=== PATIENT | female | born 1960 | race Caucasian/White ===

== ENCOUNTER 2024-10-20 18:48 | Inpatient (IN) ==
[2024-10-20] MEDS ORDERED: IOPAMIDOL 100 ML BOTTLE IV ONE (18:49)
[2024-10-20] MEDS: LORazepam 2 MG/ML VIAL IV ONE (19:24)
[2024-10-20] MEDS: 0.9 % SODIUM CHLORIDE 1,000 ML IV ONE (19:24)
[2024-10-20 19:49] LABS: Basophils # (Auto) 0.03 K/mcL (0.00-0.30); Basophils % (Auto) 0.3 % (0.0-2.0); Eosinophils # (Auto) 0.08 K/mcL (0.00-0.70); Eosinophils % (Auto) 0.9 % (0.0-7.0); Hematocrit 43.6 % (34.1-44.9); Hemoglobin 14.4 g/dL (11.2-15.7); Lymphocytes # (Auto) 2.78 K/mcL (1.50-4.80); Lymphocytes % (Auto) 29.6 % (15.5-49.0); Mean Cell Volume 98.2 fL (80.0-100.0); Mean Platelet Volume 9.8 fL (8.8-12.5); Monocytes # (Auto) 0.85 K/mcL (0.10-0.90); Monocytes % (Auto) 9.1 % (1.0-12.0); Neutrophils % (Auto) 59.2 % (38.0-78.0); Platelet Count 387 K/mcL (140-440); RBC 4.44 M/mcL (3.59-5.38); Red Cell Distribution Width 13.9 % (11.5-14.5); WBC 9.4 K/mcL (4.5-11.0)
[2024-10-20 20:19] LABS: ALT/SGPT 485 U/L (<40); AST/SGOT 500 U/L (<32); Albumin 3.8 gm/dL (3.2-5.2); Albumin/Globulin Ratio 1.5 (1.0-2.3); Alkaline Phosphatase 143 U/L (39-117); Bilirubin,Total 1.3 mg/dL (0.1-1.0); Blood Urea Nitrogen 21 mg/dL (8-23); Calcium 8.9 mg/dL (8.6-10.4); Carbon Dioxide 16 mmol/L (22-30); Chloride 103 mmol/L (96-108); Globulin 2.6 gm/dL (2.2-3.7); Glomerular Filtration Rate 67; Glucose 147 mg/dL (70-105); Potassium 4.3 mmol/L (3.3-5.1); Sodium 138 mmol/L (133-145)
[2024-10-20] MEDS: ONDANSETRON 4 MG/2 ML VIAL IV ONE (20:46)
[2024-10-20] MEDS: morphine 4 MG/ML VIAL IV PRN (20:46)
[2024-10-20] MEDS: PROCHLORPERAZINE 10 MG/2 ML VIAL IV ONE (21:56)
[2024-10-20] MEDS: HYDROmorphone 1 MG/ML SYRINGE IV ONE (21:56)
[2024-10-20] MEDS: 0.9 % SODIUM CHLORIDE 1,000 ML IV SCH ×2 (21:57→22:16)
[2024-10-20] MEDS: FUROSEMIDE 40 MG/4 ML VIAL IV ONE (22:23)
[2024-10-20] MEDS: ASPIRIN 325 MG ENTERIC COATED TABLET PO ONE (22:57)
[2024-10-20] MEDS: ASPIRIN 81 MG TAB.CHEW CHEWED ONE (23:05)
[2024-10-21] MEDS ORDERED: NALOXONE HCL 0.4 MG/ML VIAL IV PRN (01:15)
[2024-10-21] MEDS ORDERED: POLYETHYLENE GLYCOL 3350 17 GM PACKET PO PRN (01:15)
[2024-10-21] MEDS ORDERED: SENNOSIDES 1 TABLET PO PRN (01:15)
[2024-10-21 01:59] LABS: Free T4 (Free Thyroxine) 1.67 ng/dL (0.93-1.70)
[2024-10-21 02:00] LABS: Phosphorous 2.9 mg/dL (2.5-4.5); Thyroid Stimulating Hormone 2.66 uIU/mL (0.27-5.01)
[2024-10-21] MEDS: 0.9 % SODIUM CHLORIDE 10 ML SYRINGE IV SCH (06:04)
[2024-10-21] MEDS: FUROSEMIDE 40 MG/4 ML VIAL IV SCH (06:04)
[2024-10-21] MEDS: FUROSEMIDE 40 MG/4 ML VIAL IV ONE (06:05)
[2024-10-21 07:04] LABS: ALT/SGPT 565 U/L (<40); AST/SGOT 550 U/L (<32); Albumin 3.4 gm/dL (3.2-5.2); Albumin/Globulin Ratio 1.6 (1.0-2.3); Alkaline Phosphatase 124 U/L (39-117); Bilirubin,Direct 0.4 mg/dL (<0.3); Bilirubin,Total 0.8 mg/dL (0.1-1.0); Blood Urea Nitrogen 19 mg/dL (8-23); Calcium 8.4 mg/dL (8.6-10.4); Carbon Dioxide 21 mmol/L (22-30); Chloride 106 mmol/L (96-108); Globulin 2.1 gm/dL (2.2-3.7); Glomerular Filtration Rate 67; Glucose 95 mg/dL (70-105); Lactate Dehydrogenase 517 U/L (135-225); Phosphorous 3.4 mg/dL (2.5-4.5); Potassium 3.7 mmol/L (3.3-5.1); Sodium 141 mmol/L (133-145); Triglycerides 106 mg/dL (<150); Uric Acid 8.2 mg/dL (2.5-8.0)
[2024-10-21 07:34] LABS: Basophils # (Auto) 0.03 K/mcL (0.00-0.30); Basophils % (Auto) 0.4 % (0.0-2.0); Eosinophils # (Auto) 0.06 K/mcL (0.00-0.70); Eosinophils % (Auto) 0.9 % (0.0-7.0); Hematocrit 50.1 % (34.1-44.9); Hemoglobin 15.8 g/dL (11.2-15.7); Lymphocytes # (Auto) 0.63 K/mcL (1.50-4.80); Mean Cell Volume 98.4 fL (80.0-100.0); Mean Corpuscular HGB Conc 31.5 g/dL (31.0-36.0); Mean Platelet Volume 10.6 fL (8.8-12.5); Monocytes # (Auto) 0.96 K/mcL (0.10-0.90); Monocytes % (Auto) 13.7 % (1.0-12.0); Neutrophils % (Auto) 75.9 % (38.0-78.0); Platelet Count 179 K/mcL (140-440); RBC 5.09 M/mcL (3.59-5.38); Red Cell Distribution Width 14.6 % (11.5-14.5)
[2024-10-21 07:52] LABS: Hepatitis A Antibody IgM Non-Reactive (Non-Reactive); Hepatitis B Surface Antigen Negative (Negative); Hepatitis C Virus Antibody Non-Reactive (Non-Reactive)
[2024-10-21] MEDS: POTASSIUM CHLORIDE 20 MEQ TABLET PO ONE (08:08)
[2024-10-21] MEDS: MAGNESIUM SULFATE 2 GM/50 ML BAG IV ONE (08:08)
[2024-10-21] MEDS: HEPARIN 5,000 UNIT/ML VIAL SQ SCH (09:33)
[2024-10-21] MEDS: DOXYCYCLINE HYCLATE 100 MG TABLET.ORL PO SCH (09:33)
[2024-10-21] MEDS: morphine 4 MG/ML VIAL IV PRN (16:22)
[2024-10-21] MEDS: ACETAMINOPHEN 325 MG TABLET PO PRN (16:54)
[2024-10-22 06:46] LABS: Basophils # (Auto) 0.03 K/mcL (0.00-0.30); Basophils % (Auto) 0.4 % (0.0-2.0); Eosinophils # (Auto) 0.14 K/mcL (0.00-0.70); Eosinophils % (Auto) 2.1 % (0.0-7.0); Hematocrit 41.5 % (34.1-44.9); Hemoglobin 13.9 g/dL (11.2-15.7); Lymphocytes # (Auto) 1.97 K/mcL (1.50-4.80); Lymphocytes % (Auto) 29.5 % (15.5-49.0); Mean Cell Volume 98.6 fL (80.0-100.0); Mean Corpuscular HGB Conc 33.5 g/dL (31.0-36.0); Mean Platelet Volume 9.6 fL (8.8-12.5); Monocytes # (Auto) 0.58 K/mcL (0.10-0.90); Monocytes % (Auto) 8.7 % (1.0-12.0); Neutrophils % (Auto) 58.7 % (38.0-78.0); Platelet Count 297 K/mcL (140-440); RBC 4.21 M/mcL (3.59-5.38); Red Cell Distribution Width 13.6 % (11.5-14.5); WBC 6.7 K/mcL (4.5-11.0)
[2024-10-22 07:00] LABS: ALT/SGPT 467 U/L (<40); AST/SGOT 301 U/L (<32); Albumin 3.3 gm/dL (3.2-5.2); Albumin/Globulin Ratio 1.4 (1.0-2.3); Alkaline Phosphatase 118 U/L (39-117); Bilirubin,Direct 0.4 mg/dL (<0.3); Bilirubin,Total 0.7 mg/dL (0.1-1.0); Blood Urea Nitrogen 24 mg/dL (8-23); Carbon Dioxide 27 mmol/L (22-30); Chloride 99 mmol/L (96-108); Globulin 2.3 gm/dL (2.2-3.7); Glomerular Filtration Rate 52; Glucose 99 mg/dL (70-105); Lactate Dehydrogenase 328 U/L (135-225); Phosphorous 4.5 mg/dL (2.5-4.5); Potassium 4.1 mmol/L (3.3-5.1); Sodium 140 mmol/L (133-145); Triglycerides 91 mg/dL (<150); Uric Acid 9.6 mg/dL (2.5-8.0)
[2024-10-22] MEDS: ONDANSETRON 4 MG/2 ML VIAL IV PRN (15:02)
[2024-10-22] MEDS: SPIRONOLACTONE 25 MG TABLET PO SCH (15:02)
[2024-10-22] MEDS: FUROSEMIDE 40 MG/4 ML VIAL IV ONE ×2 (22:45→22:48)
[2024-10-22] MEDS: CARVEDILOL 6.25 MG TABLET ONE (22:45)
[2024-10-22] MEDS: CARVEDILOL 6.25 MG TABLET PO ONE (22:48)
[2024-10-23 06:36] LABS: Basophils # (Auto) 0.01 K/mcL (0.00-0.30); Basophils % (Auto) 0.1 % (0.0-2.0); Eosinophils # (Auto) 0.15 K/mcL (0.00-0.70); Eosinophils % (Auto) 1.8 % (0.0-7.0); Hemoglobin 14.8 g/dL (11.2-15.7); Lymphocytes # (Auto) 2.06 K/mcL (1.50-4.80); Lymphocytes % (Auto) 25.2 % (15.5-49.0); Mean Cell Volume 96.3 fL (80.0-100.0); Mean Corpuscular HGB Conc 33.6 g/dL (31.0-36.0); Mean Platelet Volume 9.5 fL (8.8-12.5); Monocytes # (Auto) 0.85 K/mcL (0.10-0.90); Monocytes % (Auto) 10.4 % (1.0-12.0); Neutrophils % (Auto) 62.1 % (38.0-78.0); Platelet Count 318 K/mcL (140-440); RBC 4.57 M/mcL (3.59-5.38); Red Cell Distribution Width 13.4 % (11.5-14.5); WBC 8.2 K/mcL (4.5-11.0)
[2024-10-23 07:19] LABS: ALT/SGPT 412 U/L (<40); AST/SGOT 199 U/L (<32); Albumin 3.5 gm/dL (3.2-5.2); Albumin/Globulin Ratio 1.3 (1.0-2.3); Alkaline Phosphatase 118 U/L (39-117); Bilirubin,Direct 0.3 mg/dL (<0.3); Bilirubin,Total 0.5 mg/dL (0.1-1.0); Blood Urea Nitrogen 31 mg/dL (8-23); Calcium 9.3 mg/dL (8.6-10.4); Carbon Dioxide 28 mmol/L (22-30); Chloride 94 mmol/L (96-108); Globulin 2.7 gm/dL (2.2-3.7); Glomerular Filtration Rate 67; Glucose 106 mg/dL (70-105); Lactate Dehydrogenase 287 U/L (135-225); Phosphorous 5.2 mg/dL (2.5-4.5); Sodium 138 mmol/L (133-145); Triglycerides 154 mg/dL (<150)
[2024-10-23] MEDS ORDERED: CARVEDILOL 6.25 MG TABLET PO SCH (08:00)
[2024-10-23] MEDS: FUROSEMIDE 40 MG/4 ML VIAL IV SCH (08:01)
[2024-10-23] MEDS: CARVEDILOL 6.25 MG TABLET PO SCH (08:01)
[2024-10-23] MEDS: METHOCARBAMOL 500 MG TABLET PO PRN (08:01)
[2024-10-23] MEDS: LOSARTAN 25 MG TABLET PO SCH ×2 (10:15→20:46)
[2024-10-23] MEDS: 0.9 % SODIUM CHLORIDE 500 ML IV ONE (10:41)
[2024-10-23] MEDS: 0.9 % SODIUM CHLORIDE 1,000 ML IV ONE (11:25)
[2024-10-24 06:45] LABS: Basophils # (Auto) 0.03 K/mcL (0.00-0.30); Basophils % (Auto) 0.5 % (0.0-2.0); Eosinophils # (Auto) 0.19 K/mcL (0.00-0.70); Eosinophils % (Auto) 2.9 % (0.0-7.0); Hemoglobin 14.6 g/dL (11.2-15.7); Lymphocytes % (Auto) 35.4 % (15.5-49.0); Mean Cell Volume 98.2 fL (80.0-100.0); Mean Corpuscular HGB Conc 33.2 g/dL (31.0-36.0); Mean Platelet Volume 9.5 fL (8.8-12.5); Monocytes # (Auto) 0.76 K/mcL (0.10-0.90); Monocytes % (Auto) 11.7 % (1.0-12.0); Platelet Count 298 K/mcL (140-440); RBC 4.48 M/mcL (3.59-5.38); Red Cell Distribution Width 14.1 % (11.5-14.5); WBC 6.5 K/mcL (4.5-11.0)
[2024-10-24 06:58] LABS: ALT/SGPT 282 U/L (<40); AST/SGOT 117 U/L (<32); Albumin 3.4 gm/dL (3.2-5.2); Albumin/Globulin Ratio 1.5 (1.0-2.3); Alkaline Phosphatase 104 U/L (39-117); Bilirubin,Direct < 0.2 mg/dL (0-0.3); Bilirubin,Total 0.3 mg/dL (0.1-1.0); Blood Urea Nitrogen 25 mg/dL (8-23); Carbon Dioxide 27 mmol/L (22-30); Chloride 102 mmol/L (96-108); Globulin 2.3 gm/dL (2.2-3.7); Glomerular Filtration Rate 77; Glucose 116 mg/dL (70-105); Lactate Dehydrogenase 209 U/L (135-225); Phosphorous 3.6 mg/dL (2.5-4.5); Potassium 4.5 mmol/L (3.3-5.1); Sodium 140 mmol/L (133-145); Triglycerides 195 mg/dL (<150); Uric Acid 6.1 mg/dL (2.5-8.0)
[2024-10-24] MEDS: METOPROLOL SUCCINATE 25 MG TAB.XL.24H PO SCH (08:25)
[2024-10-24] MEDS ORDERED: FUROSEMIDE 40 MG TABLET PO PRN (10:48)
[2024-10-24 11:29] VITALS: TEMP 98.4; O2SAT 96
== END 2024-10-24 13:10 | disposition home or self-care (01) | DRG 291 ==
LOC: ED 18:48 → MEDSUR 10-21 01:08
PROVIDERS: ADMIT Student in an Organized Health Care Education/Training Program; ATTEND Student in an Organized Health Care Education/Training Program